=== PATIENT | male | born 1940 | race Hispanic/Latino ===

== ENCOUNTER 2018-10-11 02:31 | Emergency (ER) | payer MEDICARE, OTHER ==
[2018-10-11] MEDS ORDERED: Ketorolac Tromethamine 30 MG/ML VIAL ONE (02:57)
[2018-10-11] MEDS ORDERED: Ondansetron PF 4 MG/2 ML Vial ONE (02:57)
[2018-10-11] MEDS ORDERED: Pantoprazole 40 MG VIAL ONE (02:57)
[2018-10-11 03:17] LABS: #Basophils 0.1 thou/uL (0.0-0.2); #Eosinphils 0.1 thou/uL (0.0-0.7); #Lymphocytes 1.7 thou/uL (1.20-3.40); #Monocytes 0.6 thou/uL (0.11-0.59); %Basophils 0.5 % (0.0-1.0); %Eosinophils 0.5 % (0.0-10.0); %Lymphocytes 16.7 % (21.0-51.0); %Monocytes 5.5 % (0.0-10.0); %Neutrophils 76.8 % (42.0-75.0); Hemoglobin 14.8 g/dL (14.0-18.0); Mean Corpuscular HGB CONC 34.8 g/dL (32.0-36.0); Mean Corpuscular Hemoglobin 30.6 pg (27.0-31.0); Mean Corpuscular Volume 87.8 fL (78.0-98.0); Platelet Count 176 thou/uL (130-400); RBC Distribution Width 11.3 % (11.5-14.5); Red Blood Cell (RBC) Count 4.85 mill/uL (4.70-6.10); White Blood Cell (WBC) Count 10.4 thou/uL (4.8-10.8)
[2018-10-11 03:32] LABS: ALT (SGPT) 33 U/L (8-55); AST (SGOT) 24 U/L (5-34); Albumin 4.5 g/dL (3.4-4.8); Alkaline Phosphatase 57 U/L (40-150); Anion Gap 16 mmol/L (10-20); BUN (Urea Nitrogen) 20 mg/dL (8.4-25.7); Bilirubin, Total 0.7 mg/dL (0.2-1.2); Calc. Creatinine Clearance 0 mL/min (70-130); Carbon Dioxide 24 mmol/L (23-31); Chloride 103 mmol/L (98-107); Estimated GFR-MDRD 74; Glucose 117 mg/dL (83-110); Lipase 32 U/L (8-78); Potassium 4.2 mmol/L (3.5-5.1); Protein, Total 7.5 g/dL (5.8-8.1); Sodium 139 mmol/L (136-145)
[2018-10-11] MEDS ORDERED: Morphine 4 MG/ML VIAL ONE (04:53)
--- NOTE | 2018-10-11 07:30 | RAD ---
PORTABLE CHEST: DATE: 10/11/2018. FINDINGS: An AP portable film at 1427 is submitted with no prior films available for comparison. The heart is borderline in size. There is no vascular congestion, edema, or pleural effusion. The l ungs are clear. IMPRESSION: Borderline heart size; otherwise, no acute findings. POS: HOME
--- NOTE | 2018-10-11 08:11 | CT ---
PRELIMINARY REPORT/[facility]/EMERGENTY AFTER-HOURS PROCEDURE CT Abdomen and Pelvis With Contrast EXAM DATE/TIME: 10/11/2018 3:42 AM CLINICAL HISTORY: 78 years old, male; Pain; Abdominal pain; Acute; Additional info: Ruq abd pain TECHNIQUE: Axial computed tomography images of the abdomen and pelvis with intravenous contrast. All CT scans at this facility use at least one of these dose optimization techniques: automated exposure control; mA and/or kV adjustment per patient size (includes targeted exams where dose is matched to clinical ind ication); or iterative reconstruction. Coronal and sagittal reformatted images were created and revie wed. CONTRAST: 100 ml of ISOVUE 370 administered intravenously. COMPARISON: No relevant prior studies available. FINDINGS: Lower thorax: No acute findings. ABDOMEN: Liver: Normal. No mass. Gallbladder and bile ducts: Distended appearing gallbladder. Mild hyperdensity within the gallbladder lumen. Pancreas: Normal. No ductal dilation. Spleen: Normal. No splenomegaly. Adrenals: Normal. No mass. Kidneys and ureters: Simple appearing 1 and 2 cm cysts left kidney. Rounded 2 mm stones right kidney. Stomach and bowel: Normal. No obstruction. No mucosal thickening. Appendix: Appendix - visualized portions appear normal. PELVIS: Bladder: Unremarkable as visualized. Reproductive: Prostate appears within normal limits. ABDOMEN and PELVIS: Intraperitoneal space: Normal. No free air. No significant fluid collection. Bones/joints: Chronic degenerative changes of the lumbar spine. Soft tissues: Unremarkable. Vasculature: Chronic atherosclerotic calcification of the vasculature. Lymph nodes: Normal. No enlarged lymph nodes. IMPRESSION: 1. Suspected stones and/or debris in distended gallbladder. No evidence of intrahepatic or extrahepat ic biliary ductal dilatation. 2. Right renal nonobstructive stone. Thank you for allowing us to participate in the care of your patient. Dictated and Authenticated by: Zoya Ge MD 10/11/2018 4:25 AM Central Time ([place] & [place]) FINAL REPORT CT ABDOMEN AND PELVIS WITH CONTRAST: DATE: 10/11/2018. FINDINGS: Spiral CT of the abdomen and pelvis was done after injecting IV contrast. Axial slices were acquired followed by coronal and sagittal reconstructions. The lung bases are clear, except for some dependent atelectasis. There is a calcified pleural plaque along the right lateral pleural surface. It was the only one seen. There might have been prior asb estos exposure The liver, spleen, pancreas, and adrenal glands appeared normal. The main finding was a distended ga llbladder measuring at least 12 m long if not more. While discrete stones were not seen within it, i ts contents seem inhomogeneous. I cannot rule out debris, sludge, or tiny calculi. Ultrasound would be better at determining this. There are no dilated ducts visible. The kidneys showed no hydroneph rosis. There are what appear to be 2 simple cysts in the left kidney measuring 2.3 and 1.0 cm respec tively. Ultrasound would be confirmatory. A nonobstructing stone is seen in the lower pole of the r ight kidney. The bowel is nondistended and shows no bowel wall thickening or inflammatory change around it. The a ppendix appears normal. No free air or free fluid was seen. CT of the pelvis shows no pelvic masses, free fluid, or inflammatory changes. The prostate is a bit large measuring 5.6 cm in diameter. A fat-filled right inguinal hernia as noted, which is probably o f no concern. IMPRESSION: 1. Markedly distended gallbladder with some increase in opacity and fluid within it. Ultrasound rec ommended. 2. Two simple cysts in the right kidney. An ultrasound would be nice to confirm this. 3. Nonobstructing right renal calculus. 4. Prostatic enlargement. Report in agreement with preliminary reading by [facility]. POS: HOME
[2018-10-11] MEDS ORDERED: Iopamidol 370 76% 100 ML VIAL ONE (09:00)
== END 2018-10-11 04:55 | disposition short-term general hospital (02) ==
LOC: BURERS 02:31
DX: K82.8 Other specified diseases of gallbladder (principal)
CPT/HCPCS: 36415; 71045; 74177; 80053; 83690; 84484; 85025; 93005; 96361; 96374; 96375; C9113; J1885; J2270; J2405

== ENCOUNTER 2023-02-11 16:12 | Emergency (ER) | payer MEDICARE, OTHER | END 2023-02-11 17:43 | disposition home or self-care (01) | LOC: BURERS 16:12 | DX: J20.9 Acute bronchitis, unspecified (principal); I10 Essential (primary) hypertension | CPT/HCPCS: 71045 ==

== ENCOUNTER 2023-08-19 08:29 | Emergency (ER) | payer OTHER | END 2023-08-19 09:03 | disposition home or self-care (01) | LOC: BURERS 08:29 | DX: B02.9 Zoster without complications (principal); E78.00 Pure hypercholesterolemia, unspecified; I10 Essential (primary) hypertension; Z79.899 Other long term (current) drug therapy | CPT/HCPCS: 99282 ==

== ENCOUNTER 2024-07-29 16:36 | Emergency (ER) | payer OTHER ==
[2024-07-29] MEDS ORDERED: Acetaminophen 500 MG TAB ONE (16:57)
== END 2024-07-29 17:58 | disposition short-term general hospital (02) ==
LOC: BURERS 16:36
DX: M79.661 Pain in right lower leg (principal); R79.89 Other specified abnormal findings of blood chemistry; I10 Essential (primary) hypertension
CPT/HCPCS: 36415; 85379; 99283